=== PATIENT | female | born 1960 | race Caucasian/White ===

== ENCOUNTER 2017-05-20 19:37 | Emergency (ER) | payer BC ==
[2017-05-20 19:59] VITALS: BP 132/71
[2017-05-20] MEDS ORDERED: Ibuprofen TAB* 600 MG PO ONE (20:10)
--- NOTE | 2017-05-20 20:14 | UC ---
FLU HPI - HPI Summary HPI Summary: sore throat, cough, body aches fevers, did get flu vaccine - History of Current Complaint Chief Complaint: UCRespiratory Stated Complaint: ST/COUGH Time Seen by Provider: 05/20/17 20:00 Hx Obtained From: Patient Hx Last Menstrual Period: IUD, Mirena ?: No Onset/Duration: Sudden Onset, Lasting Days - 1, Still Present, Worse Since - today Severity Currently: Moderate Severity Initially: Moderate Associated Signs & Symptoms: Positive: Fever, Myalgia, Cough, Sore Throat, Nasal Congestion, Headache - Allergy/Home Medications Allergies/Adverse Reactions: Allergies Allergy/AdvReac Type Severity Reaction Status Date / Time No Known Allergies Allergy Verified 05/20/17 19:49 Home Medications: Home Medications Dextromethorphan-Guaifenesin [Guaifenesin/Dextromethorp 20-400 mg] 1 tab PO PRN 05/20/17 [History] Ibuprofen TAB* [Advil TAB*] 200 mg PO Q6H PRN 05/20/17 [History Confirmed ] Levothyroxine TAB* [Synthorid 112 MCG TAB*] 112 mcg PO DAILY 05/20/17 [History Confirmed 05/20/17] PMH/Surg Hx/FS Hx/Imm Hx Endocrine History: Hypothyroidism Cardiovascular History: Hypertension - Surgical History Surgical History: Yes Surgery Procedure, Year, and Place: Right Thyroidectomy 2002 - Family History Known Family History: Positive: None - Social History Occupation: Employed Full-time Lives: With Family Alcohol Use: Occasionally Substance Use Type: None Smoking Status (MU): Never Smoked Tobacco - Immunization History Most Recent Influenza Vaccination: FALL 2016 Review of Systems Constitutional: Fever, Chills, Fatigue Skin: Negative Eyes: Negative ENT: Sore Throat, Nasal Discharge, Sinus Congestion Respiratory: Cough Cardiovascular: Negative Gastrointestinal: Negative Genitourinary: Negative Motor: Negative Neurovascular: Negative Musculoskeletal: Arthralgia, Myalgia Neurological: Headache Psychological: Negative Is Patient Immunocompromised?: No All Other Systems Reviewed And Are Negative: Yes Physical Exam Triage Information Reviewed: Yes Appearance: Well-Nourished, Ill-Appearing, Pain Distress Vital Signs: Initial Vital Signs Temp 102.9 F 05/20/17 19:53 Pulse 106 05/20/17 19:53 Resp 20 05/20/17 19:53 BP 132/71 05/20/17 19:53 Pulse Ox 99 05/20/17 19:53 Vital Signs Reviewed: Yes Eye Exam: Normal Eyes: Positive: Conjunctiva Clear ENT Exam: Normal ENT: Positive: Normal ENT inspection, Hearing grossly normal, Pharynx normal, Nasal congestion, Nasal drainage, TMs normal, Uvula midline. Negative: Tonsillar swelling, Tonsillar exudate, Trismus, Muffled voice, Hoarse voice, Sinus tenderness Dental Exam: Normal Neck exam: Normal Neck: Positive: Supple, Nontender, No Lymphadenopathy Respiratory Exam: Normal Respiratory: Positive: Chest non-tender, Lungs clear, Normal breath sounds, No respiratory distress, No accessory muscle use Cardiovascular Exam: Normal Cardiovascular: Positive: RRR, No Murmur, Pulses Normal, Brisk Capillary Refill Musculoskeletal Exam: Normal Musculoskeletal: Positive: Strength Intact, ROM Intact, No Edema Neurological Exam: Normal Neurological: Positive: Alert, Muscle Tone Normal Psychological Exam: Normal Skin Exam: Normal Diagnostics - Laboratory Diagnostic Studies Completed/Ordered: Rapid Influenza A positive Flu Course/Dx - Course Course Of Treatment: Tamiflu, ibuprofen rest increase fluids follow with pcp - Differential Dx/Diagnosis Provider Diagnoses: Influenza A Discharge - Discharge Plan Condition: Stable Disposition: HOME Prescriptions: Guaifenesin-Codeine [Guaifenesin/Codeine] 5 - 10 ml PO Q6H PRN #60 joseline MDD 40 ml PRN Reason: cough Oseltamivir CAP* [Tamiflu CAP*] 75 mg PO BID #9 cap Patient Education Materials: Influenza (ED) Referrals: Arturo Garrido MD [Primary Care Provider] - If Needed
[2017-05-20] MEDS ORDERED: Oseltamivir CAP* 75 MG PO ONE (20:33)
[2017-05-20] MEDS ORDERED: guaiFENesin/CODIEN 100MG-10MG* 5 ML UDC PO ONE (20:33)
== END 2017-05-20 20:55 | disposition home or self-care (01) ==
LOC: UCCORT 19:37
DX: J09.X2 Influenza due to identified novel influenza A virus with other respiratory manifestations (principal); E03.9 Hypothyroidism, unspecified; Z72.89 Other problems related to lifestyle
CPT/HCPCS: 87502; 99213; A9270-GY; G0463

== ENCOUNTER 2019-03-12 19:57 | Emergency (ER) | payer BC ==
[2019-03-12 20:11] VITALS: BP 141/88
[2019-03-12] MEDS ORDERED: Polymyx/Trimethoprim OPTH* 10 ML BTL BOTH EYES ONE (20:15)
--- NOTE | 2019-03-12 20:19 | UC ---
Eye Complaint HPI - HPI Summary HPI Summary: 58-year-old female presents with onset of bilateral eye redness and itchiness yesterday. Today the itchiness and redness progressively worsened and she started having thick purulent discharge from both eyes. Does not wear contacts. Denies fever, chills, nasal congestion, runny nose, cough, eye pain, visual disturbances, photophobia, foreign body sensation, or injury to the eye. - History of Current Complaint Chief Complaint: UCEye Stated Complaint: BILATERAL EYE Time Seen by Provider: 03/12/19 20:14 Hx Obtained From: Patient Hx Last Menstrual Period: IUD, Mirena Pain Intensity: 0 - Allergies/Home Medications Allergies/Adverse Reactions: Allergies Allergy/AdvReac Type Severity Reaction Status Date / Time No Known Allergies Allergy Verified 03/12/19 20:11 Home Medications: Home Medications metFORMIN* [Glucophage 500 MG TAB *] 500 mg PO BID 03/12/19 [History Confirmed 03/12/19] PMH/Surg Hx/FS Hx/Imm Hx Endocrine History: Diabetes, Thyroid Disease Cardiovascular History: Hypertension - Surgical History Surgical History: Yes Surgery Procedure, Year, and Place: Right Thyroidectomy 2002 - Family History Known Family History: Positive: Non-Contributory - Social History Occupation: Employed Full-time Lives: With Family Alcohol Use: Occasionally Substance Use Type: None Smoking Status (MU): Never Smoked Tobacco - Immunization History Most Recent Influenza Vaccination: FALL 2016 Review of Systems All Other Systems Reviewed And Are Negative: Yes Constitutional: Negative: Fever, Chills Skin: Positive: Negative Eyes: Positive: Drainage, Eye Redness. Negative: Blurred Vision, Diplopia, Photophobia ENT: Negative: Sore Throat, Ear Ache, Nasal Discharge, Sinus Congestion, Sinus Pain/Tenderness Respiratory: Negative: Cough Cardiovascular: Positive: Negative Gastrointestinal: Positive: Negative Genitourinary: Positive: Negative Motor: Positive: Negative Neurovascular: Positive: Negative Musculoskeletal: Positive: Negative Neurological: Positive: Negative Is Patient Immunocompromised?: No Physical Exam - Summary Physical Exam Summary: GENERAL APPEARANCE: Well developed, well nourished, alert and cooperative, and appears to be in no acute distress. EYES: Bilateral conjunctival errythema and edema with large amount of purulent drainage. PERRL, EOM intact. Vision is grossly intact. EARS: External auditory canals and tympanic membranes clear, hearing grossly intact. NOSE: No nasal discharge. THROAT: Pharynx normal. No tonsilar inflammation, swelling, exudate, or lesions. Uvula midline. NECK: Neck supple, non-tender without lymphadenopathy. CARDIAC: Normal S1 and S2. No S3, S4 or murmurs. Rhythm is regular. There is no peripheral edema, cyanosis or pallor. Extremities are warm and well perfused. Capillary refill is less than 2 seconds. Peripheral pulses intact. LUNGS: Clear to auscultation without rales, rhonchi, wheezing or diminished breath sounds. ABDOMEN: Positive bowel sounds. Soft, nondistended, nontender. No guarding or rebound. No masses or hepatosplenomegally. MUSKULOSKELETAL: ROM intact to all extremities. No joint erythema or tenderness. Normal muscular development. Normal gait. SKIN: Skin normal color, texture and turgor with no lesions or eruptions. Triage Information Reviewed: Yes Vital Signs: Initial Vital Signs Temp 98.6 F 03/12/19 20:08 Pulse 79 03/12/19 20:08 Resp 15 03/12/19 20:08 BP 141/88 03/12/19 20:08 Pulse Ox 99 03/12/19 20:08 Vital Signs Reviewed: Yes Eye Complaint Course/Dx - Course Course Of Treatment: 58-year-old female presents with onset of bilateral eye redness and itchiness yesterday. Today the itchiness and redness progressively worsened and she started having thick purulent discharge from both eyes. Does not wear contacts. Denies fever, chills, nasal congestion, runny nose, cough, eye pain, visual disturbances, photophobia, foreign body sensation, or injury to the eye. Afebrile. Hypertensive otherwise vital signs stable. Patient had bilateral conjunctival errythema and edema with large amount of purulent drainage and otherwise unremarkable exam. Will treat for acute bilateral bacterial conjunctivitis with Polytrim ophthalmic 1 drop both eyes 4 times a day 7 days. She is to follow-up with her primary care provider in 2-3 days if symptoms are not improving. Anticipatory guidance and warning symptoms were reviewed with the patient. Verbalizes understanding and agrees with plan of care. - Differential Dx/Diagnosis Differential Diagnosis/HQI/PQRI: Conjunctivitis, Foreign Body, Keratitis, Periorbital Cellulitis, Orbital Cellulitis Provider Diagnosis: Acute bacterial conjunctivitis of both eyes Discharge ED - Sign-Out/Discharge Documenting (check all that apply): Patient Departure All imaging exams completed and their final reports reviewed: No Studies - Discharge Plan Condition: Stable Disposition: HOME Patient Education Materials: Conjunctivitis (ED) Forms: *Work Release Referrals: Arturo Garrido MD [Primary Care Provider] - 2 Days Additional Instructions: Start Polytrim eye drops 1 drop into both eyes 4 times a day for 7 days. To avoid reinfection or spreading infection: * Use washcloths and towels once then launder. * Do not share washcloths or towels with others. * Change your pillow case each morning until you have finished treatment. * You should throw out any eye makeup, especially mascara, and use a new one once you have finished treatment. Follow up here or with your primary care provider in 2-3 days if no improvement. Seek immediate medical attention in the emergency room if you develop fever greater than 100.5 F, have pain or swelling of the eye, visual disturbances, loss of vision, or any worsening of symptoms. - Billing Disposition and Condition Condition: STABLE Disposition: Home - Attestation Statements Provider Attestation: This patient was not seen by me. I was available for consult. Chart reviewed. SEN
== END 2019-03-12 20:35 | disposition home or self-care (01) ==
LOC: UCCORT 19:57
DX: H10.9 Unspecified conjunctivitis (principal); B96.89 Other specified bacterial agents as the cause of diseases classified elsewhere; E11.9 Type 2 diabetes mellitus without complications; I10 Essential (primary) hypertension; Z79.84 Long term (current) use of oral hypoglycemic drugs
CPT/HCPCS: 99212; G0463

== ENCOUNTER 2019-05-23 08:35 | Emergency (ER) | payer BC ==
[2019-05-23 08:43] VITALS: BP 126/80
--- NOTE | 2019-05-23 09:10 | UC ---
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 No fever. No cough, congestion or PND. Worse at night. Tolerating PO. No CP or SOB. has GI bug. Meds: Reviewed. No smoking history. - History of Current Complaint Chief Complaint: UCGeneralIllness Stated Complaint: SORE THROAT Time Seen by Provider: 05/23/19 08:48 Hx Last Menstrual Period: IUD, Mirena Pain Intensity: 0 - Allergy/Home Medications Allergies/Adverse Reactions: Allergies Allergy/AdvReac Type Severity Reaction Status Date / Time No Known Allergies Allergy Verified 03/12/19 20:11 PMH/Surg Hx/FS Hx/Imm Hx Endocrine History: Diabetes, Thyroid Disease Cardiovascular History: Hypertension - Surgical History Surgical History: Yes Surgery Procedure, Year, and Place: Right Thyroidectomy 2002 - Family History Known Family History: Positive: None, Non-Contributory - Social History Alcohol Use: Occasionally Substance Use Type: None Smoking Status (MU): Never Smoked Tobacco - Immunization History Most Recent Influenza Vaccination: FALL 2016 Review of Systems All Other Systems Reviewed And Are Negative: Yes Constitutional: Positive: Negative Skin: Positive: Negative ENT: Positive: Sore Throat Respiratory: Positive: Negative Cardiovascular: Positive: Negative Gastrointestinal: Positive: Negative Physical Exam Vital Signs: Initial Vital Signs Temp 97.7 F 05/23/19 08:38 Pulse 68 05/23/19 08:38 Resp 15 05/23/19 08:38 BP 126/80 05/23/19 08:38 Pulse Ox 100 05/23/19 08:38 Course/Dx - Course Course Of Treatment: 58 yr old with sore throat and lost voice Rapid strep: negative Continue with cough drops Rest, fluids, ibuprofen as needed, take as directed with food for pain Recommend warm, salt water gargle rinse If symptoms persist or worsen, recommend follow up with PCP or return to urgent care - Diagnoses Provider Diagnosis: Viral pharyngitis Discharge ED - Sign-Out/Discharge Documenting (check all that apply): Patient Departure All imaging exams completed and their final reports reviewed: No Studies - Discharge Plan Condition: Good Disposition: HOME Patient Education Materials: Pharyngitis (ED) Referrals: Arturo Garrido MD [Primary Care Provider] - Additional Instructions: Continue with cough drops Rest, fluids, ibuprofen as needed, take as directed with food for pain Recommend warm, salt water gargle rinse If symptoms persist or worsen, recommend follow up with PCP or return to urgent care - Billing Disposition and Condition Condition: GOOD Disposition: Home
== END 2019-05-23 09:12 | disposition home or self-care (01) ==
LOC: UCCORT 08:35
DX: J02.9 Acute pharyngitis, unspecified (principal); E11.9 Type 2 diabetes mellitus without complications; I10 Essential (primary) hypertension
CPT/HCPCS: 87651; 99211; G0463